=== PATIENT | male | born 1960 | race Two or more races ===

== ENCOUNTER 2020-10-23 18:13 | Emergency (ER) | payer MEDICAID, OTHER ==
[~2020-10-23] VITALS: Ht 167.6 cm; Wt 79.4 kg
[2020-10-23] MEDS ORDERED: SODIUM CHLORIDE 0.9% 1,000 ML IV ONE (19:45)
[2020-10-23 21:10] VITALS: BP 120/74
== END 2020-10-23 21:24 | disposition home or self-care (01) ==
LOC: EDBD 18:13 → ER 18:17
DX: F10.129 Alcohol abuse with intoxication, unspecified (principal); R07.89 Other chest pain; Y90.9 Presence of alcohol in blood, level not specified; W19.XXXA Unspecified fall, initial encounter; Y93.89 Activity, other specified; Y92.89 Other specified places as the place of occurrence of the external cause; Y99.8 Other external cause status
CPT/HCPCS: 70450; 70486; 71045; 72125; 96360; 96361; 99285; J7030

== ENCOUNTER 2020-12-04 18:11 | Inpatient (IN) | payer MEDICAID ==
[~2020-12-04] VITALS: Ht 165.1 cm; Wt 84.5 kg
[2020-12-04 19:42] LABS: Albumin 1.2 g/dL (3.4-5.0); Anion Gap 13 (5-15); Blood Urea Nitrogen 44 mg/dL (7-18); Calcium 7.4 mg/dL (8.5-10.1); Carbon Dioxide 17 mmol/L (21-32); Chloride 95 mmol/L (98-107); Glucose 105 mg/dL (74-106); Magnesium 3.4 mg/dL (1.6-2.6); Potassium 4.8 mmol/L (3.5-5.1); Sodium 125 mmol/L (136-145)
[2020-12-04 19:45] LABS: INR 1.71 (0.9-1.15); Lactic Acid w/Reflex 3.6 mmol/L (0.4-2.0)
[2020-12-04 19:55] LABS: Alanine Aminotransferase 71 U/L (16-61); Alkaline Phosphatase 382 U/L (45-117); Aspartate Aminotransferase 132 U/L (15-37); BUN/Creatinine Ratio 14.5; Bilirubin, Total 24.2 mg/dL (0.2-1.0); GFR African American 27 mL/min; GFR Non-African American 22 mL/min; Phosphorus 4.4 mg/dL (2.5-4.90); Total Protein 5.5 g/dL (6.4-8.2)
[2020-12-04] MEDS ORDERED: cefTRIAXone 1GM/50ML D5W 100 ML IV ONE (20:15)
[2020-12-04] MEDS ORDERED: SODIUM CHLORIDE 0.9% 500 ML IV ONE (20:30)
[2020-12-04 20:51] LABS: Hematocrit 41.1 % (41.0-53.0); Mean Corpuscular Hemoglobin 34.5 pg (28.0-32.0); Mean Corpuscular Hgb Conc. 34.1 g/dL (32.0-36.0); Mean Corpuscular Volume 101.3 fL (80.0-100.0); Red Blood Cells 4.06 10^6/uL (4.5-5.90); Red Cell Distribution Width 15.6 % (11.8-14.3); White Blood Cell 22.2 10^3/uL (4.4-10.8)
[2020-12-04 20:52] LABS: Basophils % (manual) 0 (0.0-2.0); Blast Cells 0; Eosinophils % (manual) 0 (0-7); Myelocytes % 0; Promyelocytes % 0; Reactive Lymphocytes 0
[2020-12-04 20:53] LABS: Band Neutrophils % (manual) 1; Lymphocytes % (manual) 3 (10.0-50.0); Metamyelocytes % 1; Monocytes % (manual) 8 (0-12)
[2020-12-04] MEDS ORDERED: NITROGLYCERIN 0.4 MG SL TAB SL PRN (23:00)
[2020-12-04] MEDS ORDERED: MORPHINE SULFATE INJECTION 2 MG/ML SYRG IV PRN (23:00)
[2020-12-05] MEDS ORDERED: PIPERACILLIN-TAZOB 3.375GM 100 ML IV SCH
[2020-12-05] MEDS: PIPERACILLIN-TAZOB 2.25GM 50 ML IV SCH ×4 (00:25→18:11)
[2020-12-05 04:44] LABS: Hematocrit 42.3 % (41.0-53.0); Hemoglobin 14.9 g/dL (13.5-17.5); Mean Corpuscular Hemoglobin 35.3 pg (28.0-32.0); Mean Corpuscular Hgb Conc. 35.2 g/dL (32.0-36.0); Mean Corpuscular Volume 100.3 fL (80.0-100.0); Red Blood Cells 4.22 10^6/uL (4.5-5.90); Red Cell Distribution Width 15.7 % (11.8-14.3); White Blood Cell 25.2 10^3/uL (4.4-10.8)
[2020-12-05 05:43] LABS: Basophils % (manual) 0 (0.0-2.0); Blast Cells 0; Metamyelocytes % 0; Myelocytes % 0; Promyelocytes % 0; Reactive Lymphocytes 0
[2020-12-05 07:01] LABS: Band Neutrophils % (manual) 9; Eosinophils % (manual) 3 (0-7); Lymphocytes % (manual) 1 (10.0-50.0); Monocytes % (manual) 2 (0-12)
[2020-12-05] MEDS: SUCRALFATE 1 GM TAB PO SCH ×2 (08:46→18:11)
[2020-12-05] MEDS: PANTOPRAZOLE 40 MG/10 ML VIAL INJ IV SCH (10:01)
[2020-12-05 12:30] LABS: Urine WBC None Seen /hpf (0 - 3)
[2020-12-05 12:54] LABS: Urine Bacteria FEW /hpf (None Seen); Urine Blood TRACE /uL (Negative); Urine Specific Gravity 1.016 (1.001-1.035)
[2020-12-05 15:15] LABS: Anion Gap 15 (5-15); Carbon Dioxide 18 mmol/L (21-32); Chloride 96 mmol/L (98-107); Glucose 114 mg/dL (74-106); Sodium 129 mmol/L (136-145)
[2020-12-05 15:16] LABS: Alanine Aminotransferase 76 U/L (16-61); Alkaline Phosphatase 427 U/L (45-117); Aspartate Aminotransferase 147 U/L (15-37); BUN/Creatinine Ratio 14.8; Bilirubin, Total 23.7 mg/dL (0.2-1.0); Blood Urea Nitrogen 49 mg/dL (7-18); Calcium 7.6 mg/dL (8.5-10.1); GFR African American 24 mL/min; GFR Non-African American 20 mL/min; Total Protein 5.6 g/dL (6.4-8.2)
[2020-12-05 15:17] LABS: Albumin 1.2 g/dL (3.4-5.0)
[2020-12-05 15:18] VITALS: BP 92/54
[2020-12-05] MEDS ORDERED: ALBUMIN 25% 50 ML IV SCH (18:30)
[2020-12-05] MEDS: SODIUM CHLORIDE 0.9% 1,000 ML IV SCH (18:38)
[2020-12-05] MEDS ORDERED: PROCHLORPERAZINE EDISYLATE 5 MG/ML 2ML VIAL ONE (19:05)
[2020-12-05] MEDS: metroNIDAZOLE 500MG/100ML 100 ML IV SCH (21:48)
[2020-12-05] MEDS: LACTULOSE 20Gm/30ML SOLN PO SCH (21:49)
[2020-12-05 22:00] VITALS: BP 114/70
[2020-12-05] MEDS: ALBUMIN 25% 50 ML IV SCH (22:47)
[2020-12-06] MEDS: PIPERACILLIN-TAZOB 2.25GM 50 ML IV SCH ×4 (00:11→18:19)
[2020-12-06 05:00] VITALS: BP 95/61
[2020-12-06] MEDS: metroNIDAZOLE 500MG/100ML 100 ML IV SCH ×3 (05:08→21:08)
[2020-12-06] MEDS: ALBUMIN 25% 50 ML IV SCH ×2 (06:08→15:51)
[2020-12-06 06:10] LABS: Eosinophils # (auto) 0.2 10 ^3/uL (0-0.8); Mean Corpuscular Hgb Conc. 34.3 g/dL (32.0-36.0); Monocytes # (auto) 0.8 10 ^3/uL (0-1.3)
[2020-12-06 06:15] LABS: Basophils # (auto) 0.1 10 ^3/uL (0-0.2); Basophils % (auto) 0.3 % (0.0-2.0); Hematocrit 41.4 % (41.0-53.0); Hemoglobin 14.2 g/dL (13.5-17.5); Mean Corpuscular Hemoglobin 35.4 pg (28.0-32.0); Mean Corpuscular Volume 103.2 fL (80.0-100.0); Monocytes % (auto) 3.9 % (0.0-12.0); Neutrophils # (auto) 18.7 10 ^3/uL (1.6-8.6); Neutrophils % (auto) 89.8 % (37.0-80.0); Nucleated Red Blood Cells % 0.1 %; Red Blood Cells 4.01 10^6/uL (4.5-5.90); White Blood Cell 20.8 10^3/uL (4.4-10.8)
[2020-12-06 06:17] LABS: INR 1.82 (0.9-1.15)
[2020-12-06 06:30] LABS: Potassium 4.9 mmol/L (3.5-5.1)
[2020-12-06 06:49] LABS: Albumin 1.3 g/dL (3.4-5.0); BUN/Creatinine Ratio 16.6; Bilirubin, Total 25.8 mg/dL (0.2-1.0); Calcium 7.9 mg/dL (8.5-10.1); Total Protein 5.5 g/dL (6.4-8.2)
[2020-12-06] MEDS: SUCRALFATE 1 GM TAB PO SCH ×2 (08:57→18:19)
[2020-12-06 09:00] VITALS: BP 97/45
[2020-12-06] MEDS: LACTULOSE 20Gm/30ML SOLN PO SCH ×2 (10:55→21:09)
[2020-12-06] MEDS: PANTOPRAZOLE 40 MG/10 ML VIAL INJ IV SCH (10:55)
[2020-12-06 12:30] VITALS: BP 93/46
[2020-12-06 17:00] VITALS: BP 96/58
[2020-12-06] MEDS: SODIUM CHLORIDE 0.9% 1,000 ML IV SCH (18:13)
[2020-12-06 22:00] VITALS: BP 92/63
[2020-12-07] MEDS: PIPERACILLIN-TAZOB 2.25GM 50 ML IV SCH ×4 (03:57→17:01)
[2020-12-07 05:00] VITALS: BP 96/63
[2020-12-07 05:43] LABS: Potassium 3.8 mmol/L (3.5-5.1)
[2020-12-07 05:44] LABS: INR 1.98 (0.9-1.15)
[2020-12-07 06:00] VITALS: BP 96/63
[2020-12-07 06:01] LABS: Basophils # (auto) 0.1 10 ^3/uL (0-0.2); Basophils % (auto) 0.4 % (0.0-2.0); Eosinophils # (auto) 0.2 10 ^3/uL (0-0.8); Lymphocytes # (auto) 0.7 10 ^3/uL (0.4-5.4); Monocytes # (auto) 0.5 10 ^3/uL (0-1.3); Neutrophils # (auto) 14.7 10 ^3/uL (1.6-8.6); Nucleated Red Blood Cells % 0.1 %; White Blood Cell 16.2 10^3/uL (4.4-10.8)
[2020-12-07 06:03] LABS: Albumin 1.4 g/dL (3.4-5.0); BUN/Creatinine Ratio 14.9; Bilirubin, Total 27.1 mg/dL (0.2-1.0); Calcium 7.5 mg/dL (8.5-10.1); Total Protein 5.3 g/dL (6.4-8.2)
[2020-12-07 06:04] LABS: Eosinophils % (auto) 1.3 % (0.0-7.0); Hematocrit 41.7 % (41.0-53.0); Hemoglobin 14.4 g/dL (13.5-17.5); Lymphocytes % (auto) 4.5 % (10.0-50.0); Mean Corpuscular Hgb Conc. 34.5 g/dL (32.0-36.0); Mean Corpuscular Volume 101.6 fL (80.0-100.0); Monocytes % (auto) 3.1 % (0.0-12.0); Neutrophils % (auto) 90.7 % (37.0-80.0); Red Cell Distribution Width 15.6 % (11.8-14.3)
[2020-12-07] MEDS: metroNIDAZOLE 500MG/100ML 100 ML IV SCH ×3 (06:46→22:13)
[2020-12-07] MEDS: SUCRALFATE 1 GM TAB PO SCH ×2 (08:02→17:00)
[2020-12-07 09:00] VITALS: BP 82/47
[2020-12-07] MEDS: LACTULOSE 20Gm/30ML SOLN PO SCH ×2 (10:20→22:14)
[2020-12-07] MEDS: PANTOPRAZOLE 40 MG/10 ML VIAL INJ IV SCH (10:20)
[2020-12-07 13:00] VITALS: BP 101/65
[2020-12-07] MEDS: rifAXIMin 550 MG TAB PO SCH ×2 (13:35→22:14)
[2020-12-07 16:40] VITALS: BP 108/74
[2020-12-07] MEDS: SODIUM CHLORIDE 0.9% 1,000 ML IV SCH (16:51)
[2020-12-07 22:00] VITALS: BP 96/63
[2020-12-08] MEDS: PIPERACILLIN-TAZOB 2.25GM 50 ML IV SCH ×5 (00:25→23:39)
[2020-12-08] MEDS: SODIUM CHLORIDE 0.9% 1,000 ML IV SCH (00:32)
[2020-12-08 05:00] VITALS: BP 98/59
[2020-12-08] MEDS: metroNIDAZOLE 500MG/100ML 100 ML IV SCH ×3 (05:21→21:23)
[2020-12-08] MEDS: SUCRALFATE 1 GM TAB PO SCH ×2 (08:27→17:44)
[2020-12-08 09:00] VITALS: BP_SYST 150; BP_SYST 95; BP_DIAS 58; BP_DIAS 88
[2020-12-08] MEDS: rifAXIMin 550 MG TAB PO SCH ×2 (10:21→21:23)
[2020-12-08] MEDS: PANTOPRAZOLE 40 MG/10 ML VIAL INJ IV SCH (10:21)
[2020-12-08] MEDS: LACTULOSE 20Gm/30ML SOLN PO SCH ×2 (10:21→21:23)
[2020-12-08 10:52] LABS: Alanine Aminotransferase 66 U/L (16-61); Albumin 1.3 g/dL (3.4-5.0); Anion Gap 14 (5-15); Aspartate Aminotransferase 101 U/L (15-37); Blood Urea Nitrogen 73 mg/dL (7-18); Calcium 7.4 mg/dL (8.5-10.1); Carbon Dioxide 16 mmol/L (21-32); Chloride 102 mmol/L (98-107); Glucose 115 mg/dL (74-106); Potassium 3.8 mmol/L (3.5-5.1); Sodium 132 mmol/L (136-145)
[2020-12-08 10:55] LABS: Alkaline Phosphatase 367 U/L (45-117); GFR African American 14 mL/min; GFR Non-African American 11 mL/min; Total Protein 5.2 g/dL (6.4-8.2)
[2020-12-08 11:11] LABS: BUN/Creatinine Ratio 13.3
[2020-12-08 11:12] LABS: Basophils # (auto) 0.1 10 ^3/uL (0-0.2); Basophils % (auto) 0.5 % (0.0-2.0); Bilirubin, Total > 25.0 mg/dL (0.2-1.0); Eosinophils # (auto) 0.1 10 ^3/uL (0-0.8); Eosinophils % (auto) 0.4 % (0.0-7.0); Hematocrit 41.1 % (41.0-53.0); Hemoglobin 14.2 g/dL (13.5-17.5); Lymphocytes # (auto) 0.8 10 ^3/uL (0.4-5.4); Mean Corpuscular Hemoglobin 34.5 pg (28.0-32.0); Mean Corpuscular Hgb Conc. 34.4 g/dL (32.0-36.0); Mean Corpuscular Volume 100.3 fL (80.0-100.0); Monocytes # (auto) 0.5 10 ^3/uL (0-1.3); Monocytes % (auto) 2.7 % (0.0-12.0); Neutrophils # (auto) 18.4 10 ^3/uL (1.6-8.6); Neutrophils % (auto) 92.4 % (37.0-80.0); Nucleated Red Blood Cells % 0.1 %; Red Cell Distribution Width 15.6 % (11.8-14.3); White Blood Cell 19.9 10^3/uL (4.4-10.8)
[2020-12-08 13:00] VITALS: BP 82/43
[2020-12-08 17:00] VITALS: BP 98/37
[2020-12-08 22:00] VITALS: BP 84/39
[2020-12-09 05:00] VITALS: BP 89/54
[2020-12-09] MEDS: metroNIDAZOLE 500MG/100ML 100 ML IV SCH ×2 (05:09→14:00)
[2020-12-09] MEDS: PIPERACILLIN-TAZOB 2.25GM 50 ML IV SCH ×3 (06:25→18:00)
[2020-12-09] MEDS: SUCRALFATE 1 GM TAB PO SCH ×2 (08:00→18:00)
[2020-12-09 09:00] VITALS: BP 81/47
[2020-12-09] MEDS: rifAXIMin 550 MG TAB PO SCH (09:21)
[2020-12-09] MEDS: LACTULOSE 20Gm/30ML SOLN PO SCH (09:21)
[2020-12-09] MEDS: PANTOPRAZOLE 40 MG/10 ML VIAL INJ IV SCH (09:22)
[2020-12-09 13:00] VITALS: BP 79/46
[2020-12-09 17:00] VITALS: BP 63/37
== END 2020-12-09 18:06 | disposition hospice, home (50) | DRG 720 ==
LOC: ER 18:12 → TELE 22:50 → TELE-CENTR 12-05 16:02
PROVIDERS: ADMIT Internal Medicine; ATTEND Internal Medicine
DX: A41.9 Sepsis, unspecified organism (principal); K65.2 Spontaneous bacterial peritonitis; D68.9 Coagulation defect, unspecified; D69.6 Thrombocytopenia, unspecified; N17.9 Acute kidney failure, unspecified; E87.1 Hypo-osmolality and hyponatremia; K70.31 Alcoholic cirrhosis of liver with ascites; E88.09 Other disorders of plasma-protein metabolism, not elsewhere classified; K72.90 Hepatic failure, unspecified without coma; F10.10 Alcohol abuse, uncomplicated; Z20.822 Contact with and (suspected) exposure to COVID-19
CPT/HCPCS: 36415; 71045; 74176; 76700; 80053; 81001; 82140; 83605; 83735; 83880; 84100; 84484; 85007; 85025; 85027; 85610; 87040; 87426; 93005; 96365; 96375; C9113; G0378; J0696; J2543; J3490